=== PATIENT | female | born 2000 | race Caucasian/White ===

== ENCOUNTER 2018-11-11 15:57 | Emergency (ER) | payer OTHER ==
[~2018-11-11] VITALS: Ht 175.3 cm; Wt 62.0 kg
[2018-11-11] MEDS ORDERED: ONDANSETRON 2MG/ML, 2ML IVPush ONE (16:30)
[2018-11-11] MEDS ORDERED: SODIUM CHLORIDE 0.9% 1,000ML IVBOLUS ONE (16:30)
[2018-11-11 16:50] LABS: BASOPHILS # (AUTO) 0.04 x10^3/uL (0-0.3); BASOPHILS % (AUTO) 0 % (0-1); EOSINOPHILS % (AUTO) 0 % (1-7); LYMPHOCYTES # (AUTO) 1.11 x10^3/uL (1-6.1); LYMPHOCYTES % (AUTO) 12 % (22-44); MD NO; MEAN CORPUSCULAR HEMOGLOBIN 31.1 pg (27.0-34.8); MEAN CORPUSCULAR HGB CONC 34.2 g/dL (32.4-35.8); MEAN CORPUSCULAR VOLUME 90.8 fL (80-100); MEAN PLATELET VOLUME 10.3 fL (7.4-10.4); MONOCYTES # (AUTO) 0.46 x10^3/uL (0-1.4); MONOCYTES % (AUTO) 5 % (2-9); NEUTROPHILS % (AUTO) 83 % (42-75); PLATELET COUNT 244 x10^3/uL (130-400); RED BLOOD COUNT 4.66 x10^6/uL (3.82-5.3); RED CELL DISTRIBUTION WIDTH 13.3 % (9.6-15.2)
[2018-11-11 17:02] LABS: ANION GAP 9 mmol/L (5-15); CALCIUM 9.6 mg/dL (8.5-10.1); CHLORIDE 109 mmol/L (98-107); CREATININE 0.79 mg/dL (0.55-1.02)
--- NOTE | 2018-11-11 18:41 | NUR ---
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
[2018-11-11 18:58] VITALS: BP 118/60
--- NOTE | 2018-11-11 18:59 | NUR ---
PT ARRIVED TO ROOM 36 VIA WHEELCHAIR WITH MOM. PT C/O INTENSE NAUSEA AND VOMITTING, STATING SHE IS , HAD POSITIVE TEST 2 WEEKS AGO. PT AAO X 4, VSS, DRESSED IN GOWN, ATTACHED TO MONITOR. PT IN RPILOT POINT, CALL LIGHT WITHIN REACH, PIV ESTABLISHED, MOM AT BEDSIDE.
--- NOTE | 2018-11-11 19:01 | NUR ---
AT BEDSIDE FOR EXAM.
[2018-11-11] MEDS ORDERED: ONDANSETRON 2MG/ML, 2ML ONE (19:03)
[2018-11-11 19:06] LABS: MICROSCOPIC INDICATED
[2018-11-11 19:10] LABS: CULTURE INDICATED? NO
--- NOTE | 2018-11-11 19:57 | NUR ---
Patient/Caregiver given discharge instructions and they have confirmed that they understand the instructions. Patient ambulatory with steady gait.
== END 2018-11-11 19:59 | disposition home or self-care (01) ==
LOC: ED 19:54
DX: O20.0 Threatened abortion (principal); O21.9 Vomiting of pregnancy, unspecified
CPT/HCPCS: 36415; 76801; 80048; 81001; 82040; 84702; 85025; 96374; 99284; J2405; J7030